=== PATIENT | male | born 1990 | race Two or more races ===

== ENCOUNTER 2024-05-16 13:10 | Emergency (ER) | payer BC ==
[~2024-05-16] VITALS: Ht 162.6 cm; Wt 65.3 kg
[2024-05-16 13:18] VITALS: BP 160/84; TEMP 99.1; O2SAT 98
[2024-05-16] MEDS ORDERED: KETOROLAC TROMETHAMINE 15 MG/ML VIAL ONE (13:34)
[2024-05-16] MEDS ORDERED: dexaMETHasone SOD PHOSPHATE 0 ML ONE (13:34)
[2024-05-16] MEDS: dexaMETHasone SOD PHOSPHATE 10 MG/ML VIAL IM ONE (13:40)
[2024-05-16] MEDS: KETOROLAC TROMETHAMINE 15 MG/ML VIAL IM ONE (13:41)
[2024-05-16] MEDS ORDERED: AMOX-430 PO (13:46)
[2024-05-16] MEDS ORDERED: IBUP-1955 PO (13:49)
== END 2024-05-16 14:27 | disposition home or self-care (01) ==
LOC: ER 13:10
DX: H92.02 Otalgia, left ear (principal); J02.9 Acute pharyngitis, unspecified; Z79.899 Other long term (current) drug therapy
CPT/HCPCS: J1100; J1885